=== PATIENT | female | born 2000 | race Caucasian/White ===

== ENCOUNTER 2024-03-16 05:29 | Inpatient (IN) | payer OTHER ==
[~2024-03-16 05:29] MED LIST: Oxytocin/Lactated Ringers 30 UNIT/500 ML BAG IV SCH; Sodium Chloride 0.9% 10 ML Syringe FLUSH PRN
[2024-03-16 06:11] LABS: BASOPHILS ABSOLUTE AUTO 0.1 K/mm3 (0.0-0.2); BASOPHILS PERCENT AUTO 0.9 % (0.0-1.0); EOSINOPHILS PERCENT AUTO 0.3 % (0.0-6.0); HEMATOCRIT 36.1 % (37.0-47.0); HEMOGLOBIN 12.4 gm/dl (12.0-16.0); IMMATURE GRAN ABSOLUTE AUTO 0.06 K/mm3 (0.00-0.05); IMMATURE GRAN PERCENT AUTO 0.9 % (0.0-0.4); LYMPHOCYTES ABSOLUTE AUTO 1.5 K/mm3 (1.0-4.8); LYMPHOCYTES PERCENT AUTO 22.6 % (24.0-44.0); MEAN CORPUSCULAR HEMOGLOBIN 31.8 pg (28.0-32.0); MEAN CORPUSCULAR HGB CONC 34.3 g/dl (32.0-36.0); MEAN CORPUSCULAR VOLUME 92.6 fl (83.0-99.0); MEAN PLATELET VOLUME 12.5 fl (9.4-12.3); MONOCYTES ABSOLUTE AUTO 0.6 K/mm3 (0.0-0.8); MONOCYTES PERCENT AUTO 9.6 % (0.0-8.0); NEUTROPHILS ABSOLUTE AUTO 4.4 K/mm3 (1.8-7.7); NEUTROPHILS PERCENT AUTO 65.7 % (41.0-71.0); PLATELET COUNT,PLT 175 K/mm3 (150-400); WHITE BLOOD CELL COUNT,WBC 6.67 K/mm3 (3.9-11.3)
[2024-03-16] MEDS: Citric Acid/Sodium Citrate Solution 30 ML Cup PO ONE (07:10)
[2024-03-16] MEDS: Metoclopramide 10 MG/2 ML SDV IVPUSH ONE (07:10)
[2024-03-16] MEDS: Lactated Ringers 1,000 ML IV SCH (07:11)
[2024-03-16] MEDS ORDERED: fentaNYL 100 MCG/2 ML SDV ONE (07:19)
[2024-03-16] MEDS ORDERED: Morphine PF 10 MG/10 ML SDV ONE (07:20)
[2024-03-16] MEDS ORDERED: Oxytocin 10 Units/1 ML SDV ONE ×3 (07:22→08:07)
[2024-03-16] MEDS ORDERED: Phenylephrine 1% 10 MG/ML SDV ONE (07:22)
[2024-03-16] MEDS ORDERED: ceFAZolin 2 GM Vial ONE (07:45)
[2024-03-16] MEDS: Bupivacaine 0.5% 30 ML SDV ONE (07:53)
[2024-03-16] MEDS ORDERED: Ondansetron 4 MG/2 ML SDV IVPUSH PRN (08:39)
[2024-03-16] MEDS ORDERED: fentaNYL 100 MCG/2 ML SDV IVPUSH PRN (08:39)
[2024-03-16] MEDS ORDERED: diphenhydrAMINE 50 MG/ML SDV IVPUSH PRN ×2 (08:39→09:58)
[2024-03-16] MEDS ORDERED: Meperidine 50 MG/ML Vial IVPUSH PRN (08:39)
[2024-03-16] MEDS ORDERED: Sodium Chloride 0.9% 10 ML Syringe FLUSH PRN (09:58)
[2024-03-16] MEDS ORDERED: Acetaminophen/oxyCODONE 325-5 MG Tab PO PRN (09:58)
[2024-03-16] MEDS ORDERED: ePHEDrine 50 MG/ML SDV IVPUSH PRN (09:58)
[2024-03-16] MEDS ORDERED: Naloxone 0.4 MG/ML SDV IVPUSH PRN (09:58)
[2024-03-16] MEDS: Dextrose 5%-Lactated Ringers 1,000 ML IV SCH (11:23)
[2024-03-16] MEDS: Sertraline 50 MG Tab PO SCH (11:36)
[2024-03-16] MEDS: Ketorolac 30 MG/ML SDV IVPUSH SCH (14:40)
[2024-03-16] MEDS: Oxytocin 10 Units/1 ML SDV ONE (14:58)
[2024-03-17] MEDS: Acetaminophen/oxyCODONE 325-5 MG Tab PO PRN (01:38)
[2024-03-17] MEDS: Ibuprofen 600 MG Tab PO PRN (08:39)
[2024-03-17] MEDS: Docusate Sodium 100 MG Cap PO PRN (08:40)
[2024-03-17 08:51] LABS: HEMATOCRIT 36.7 % (37.0-47.0); HEMOGLOBIN 12.5 gm/dl (12.0-16.0); MEAN CORPUSCULAR HEMOGLOBIN 31.9 pg (28.0-32.0); MEAN CORPUSCULAR HGB CONC 34.1 g/dl (32.0-36.0); MEAN CORPUSCULAR VOLUME 93.6 fl (83.0-99.0); MEAN PLATELET VOLUME 12.1 fl (9.4-12.3); PLATELET COUNT,PLT 163 K/mm3 (150-400); RED BLOOD CELL COUNT 3.92 M/mm3 (4.10-5.30); WHITE BLOOD CELL COUNT,WBC 9.51 K/mm3 (3.9-11.3)
[2024-03-18] MEDS: Sodium Chloride 0.9% 10 ML Syringe FLUSH SCH (04:00)
[2024-03-18] MEDS: ceFAZolin 2 GM in Sodium Chloride 0.9% 50 ML IV ONE (04:00)
== END 2024-03-18 11:25 | disposition home or self-care (01) | DRG 788 ==
LOC: JD.OB 05:29
PROVIDERS: ADMIT Obstetrics & Gynecology; ATTEND Obstetrics & Gynecology
PROC: 10D00Z1 Extraction of Products of Conception, Low, Open Approach (ICD-10-PCS; principal; 2024-03-16 08:00)
DX: O44.53 Low lying placenta with hemorrhage, third trimester (principal); O99.344 Other mental disorders complicating childbirth; F41.9 Anxiety disorder, unspecified; F32.A Depression, unspecified; Z3A.37 37 weeks gestation of pregnancy; Z37.0 Single live birth
CPT/HCPCS: 36415; 59025; 85025; 85027; 86592; 86850; 86900; 86901; 94762; A9270-GY; J0665; J0690; J1885; J2274; J2371; J2590; J2765; J3010; J7120; J7121